=== PATIENT | male | born 1945 | race Caucasian/White ===

== ENCOUNTER 2023-07-23 09:45 | Outpatient (CLI) | payer OTHER, SELFPAY ==
--- NOTE | ~2023-07-23 | CT_ITS ---
EXAMINATION: CT sinus wo con DATE: 07/23/2023 10:08 INDICATION: Chronic pansinusitis TECHNIQUE: Computed tomography (CT) of the paranasal sinuses was performed without intravenous contra st. The dose-length product was 286.08 mGy-cm. Automated exposure control and iterative reconstructio n technique were employed. COMPARISON: None FINDINGS: There is mucosal thickening of the frontal, ethmoid and sphenoid sinuses. No significant na bruce septal deviation. Right ostiomeatal unit is partially occluded by soft tissue. Left ostiomeatal u nit is patent. No air-fluid levels. No mucoperiosteal reaction. Mastoids are pneumatized. IMPRESSION: 1. Mild sinusitis. Reviewed, dictated and finalized at location L. [facility] GENERAL COUNSEL IMPRESSION: 1. Mild sinusitis.
== END 2023-07-23 09:46 | disposition home or self-care (01) ==
LOC: ANHIMG 09:52
PROVIDERS: Visit Provider Otolaryngology
DX: J32.4 Chronic pansinusitis (principal)
CPT/HCPCS: 70486